=== PATIENT | male | born 1945 | race Caucasian/White ===

== ENCOUNTER 2024-08-30 07:57 | Outpatient (CLI) | payer OTHER, SELFPAY | END 2024-08-30 07:58 | disposition home or self-care (01) | LOC: WOUND 08:02 | PROVIDERS: PCP Physician Assistant; Visit Provider Nurse Practitioner Family | DX: L89.893 Pressure ulcer of other site, stage 3 (principal); I12.9 Hypertensive chronic kidney disease with stage 1 through stage 4 chronic kidney disease, or unspecified chronic kidney disease; N18.9 Chronic kidney disease, unspecified | CPT/HCPCS: 11042; G0463 ==

== ENCOUNTER 2024-09-13 09:20 | Outpatient (CLI) | payer OTHER, SELFPAY | END 2024-09-13 09:21 | disposition home or self-care (01) | LOC: WOUND 09:20 | PROVIDERS: PCP Physician Assistant; Visit Provider Nurse Practitioner Family | DX: L89.893 Pressure ulcer of other site, stage 3 (principal); I10 Essential (primary) hypertension | CPT/HCPCS: 11042 ==

== ENCOUNTER 2024-09-20 09:18 | Outpatient (CLI) | payer OTHER, SELFPAY | END 2024-09-20 09:19 | disposition home or self-care (01) | LOC: WOUND 09:18 | PROVIDERS: PCP Physician Assistant; Visit Provider Nurse Practitioner Family | DX: L89.893 Pressure ulcer of other site, stage 3 (principal); I10 Essential (primary) hypertension | CPT/HCPCS: G0463 ==

== ENCOUNTER 2024-09-27 09:23 | Outpatient (CLI) | payer OTHER, SELFPAY | END 2024-09-27 09:24 | disposition home or self-care (01) | LOC: WOUND 09:23 | PROVIDERS: PCP Physician Assistant; Visit Provider Nurse Practitioner Family | DX: I12.9 Hypertensive chronic kidney disease with stage 1 through stage 4 chronic kidney disease, or unspecified chronic kidney disease (principal); N18.9 Chronic kidney disease, unspecified; Z09 Encounter for follow-up examination after completed treatment for conditions other than malignant neoplasm; Z87.2 Personal history of diseases of the skin and subcutaneous tissue | CPT/HCPCS: G0463 ==